=== PATIENT | male | born 1980 | race Caucasian/White ===

== ENCOUNTER 2016-10-11 03:11 | Emergency (ER) | payer OTHER ==
[~2016-10-11] VITALS: Ht 180.3 cm; Wt 107.8 kg
[~2016-10-11 03:11] MED LIST: FLEXERIL10 MG PO; MOBIC15 MG PO; NOHOMEMEDS; VICODIN,LORT1 TABLET PO
[2016-10-11 05:42] VITALS: BP 120/72
== END 2016-10-11 05:43 | disposition home or self-care (01) ==
LOC: EXP 03:11 → EME 03:11 → EXP 05:43
DX: R55 Syncope and collapse (principal); S61.412A Laceration without foreign body of left hand, initial encounter; R51 Headache; Y99.0 Civilian activity done for income or pay; Z23 Encounter for immunization
CPT/HCPCS: 93005; 99281; 99284

== ENCOUNTER 2016-10-30 12:32 | Emergency (ER) | payer OTHER ==
[~2016-10-30] VITALS: Ht 180.3 cm; Wt 105.5 kg
[2016-10-30 13:58] LABS: HEMATOCRIT 47.7 % (38.0-50.0); MCH 30.7 PG (29.0-34.0); MCV 90.3 FL (86-99); MEAN PLAT.VOLUME 9.4 uM^3 (9.0-12.4); PLATELET COUNT 209 K/uL (156-360); RBC DIS.WIDTH-CV 14.1 % (11.8-14.6); RBC DIS.WIDTH-SD 46.3 % (39-53); RED BLOOD COUNT 5.28 M/uL (4.00-5.50)
[2016-10-30 14:07] LABS: CHLORIDE 106 mEq/L (99-109); POTASSIUM 5.2 mEq/L (3.7-5.4); SODIUM 139 mEq/L (136-147)
[2016-10-30 14:09] LABS: GLUCOSE 113 mg/dL (70-99)
[2016-10-30 14:10] LABS: ANION GAP 8 MEQ/L (2-14)
[2016-10-30 14:12] LABS: GFR ESTIMATE (CALCULATED) > 59 mL/min/
[2016-10-30 14:13] LABS: UREA NITROGEN (BUN) 14 mg/dL (9-23)
[2016-10-30 15:00] LABS: ADD MIUA? YES; BILIRUBIN NEGATIVE; BLOOD NEGATIVE; COLOR YELLOW ((YELLOW)); GLUCOSE (STRIP) NEGATIVE; KETONES NEGATIVE; LEUKOCYTES NEGATIVE; NITRITE NEGATIVE; PROTEIN (STRIP) 30; SPECIFIC GRAVITY 1.021 (1.000-1.030); UROBILINOGEN 0.2 MG/DL (0.2-1.0)
[2016-10-30 15:32] LABS: TOTAL BILIRUBIN 0.3 mg/dL (0.0-1.0)
[2016-10-30 15:33] LABS: ALKALINE PHOSPHATASE 68 IU/L (3-129)
[2016-10-30 15:35] LABS: DIRECT BILIRUBIN 0.1 mg/dL (0.0-0.3)
[2016-10-30 15:36] LABS: LIPASE 24 U/L (1.0-51.0)
[2016-10-30 15:38] LABS: BACTERIA RARE /HPF; EPITHELIAL CELLS RARE /HPF; HYALINE CASTS 0-5 /LPF; MUCUS TRACE /LPF; RED BLOOD CELLS 0-5 /HPF (0-5); UCUL ADDED? NO; WHITE BLOOD CELLS 0-5 /HPF (0-5)
[2016-10-30] MEDS ORDERED: BENTYL20 MG PO (17:59)
[2016-10-30] MEDS ORDERED: ZOFRAN ODT4 MG PO (17:59)
[2016-10-30 18:23] VITALS: BP 137/90
== END 2016-10-30 18:24 | disposition home or self-care (01) ==
LOC: EME 12:32
DX: R10.32 Left lower quadrant pain (principal); R55 Syncope and collapse; D72.829 Elevated white blood cell count, unspecified; I10 Essential (primary) hypertension
CPT/HCPCS: 74177; 80048; 80076; 81003; 83690; 85027; 93005; 99281; 99284; J1885; J7040

== ENCOUNTER → 2017-11-23 | Outpatient (CLI) | payer OTHER ==
[~2017-11-23] VITALS: Ht 172.7 cm; Wt 111.1 kg
[~2017-11-23] MED LIST changes: +BENTYL20 MG PO; +ZOFRAN ODT4 MG PO
== END | disposition home or self-care (01) ==
LOC: AMB 12:24
DX: K22.10 Ulcer of esophagus without bleeding (principal); K29.70 Gastritis, unspecified, without bleeding; K29.80 Duodenitis without bleeding; K64.8 Other hemorrhoids; Z80.0 Family history of malignant neoplasm of digestive organs; F17.200 Nicotine dependence, unspecified, uncomplicated
CPT/HCPCS: 88305; 88342 TC; J2250; J3010